=== PATIENT | male | born 1985 | race Caucasian/White ===

== ENCOUNTER 2018-03-13 17:25 | Emergency (ER) | payer MEDICAID, MEDICARE ==
[~2018-03-13] VITALS: Ht 167.6 cm; Wt 62.0 kg
[2018-03-13] MEDS ORDERED: ONDANSETRON 4MG ODT PO ONE (18:45)
[2018-03-13] MEDS ORDERED: KETOROLAC 60MG/2ML VIAL IM ONE (18:45)
[2018-03-13] MEDS ORDERED: MORPHINE SULFATE 10 MG/ML CPJ IM ONE (18:45)
[2018-03-13 18:53] VITALS: BP 114/72
== END 2018-03-13 20:26 | disposition home or self-care (01) ==
LOC: ER 20:02
DX: S82.842A Displaced bimalleolar fracture of left lower leg, initial encounter for closed fracture (principal); V03.10XA Pedestrian on foot injured in collision with car, pick-up truck or van in traffic accident, initial encounter; Y93.89 Activity, other specified; Y92.410 Unspecified street and highway as the place of occurrence of the external cause; F12.90 Cannabis use, unspecified, uncomplicated; Z87.828 Personal history of other (healed) physical injury and trauma; R03.0 Elevated blood-pressure reading, without diagnosis of hypertension
CPT/HCPCS: 29515; 73610; 96372; 99284; J1885; J2270; Q0162

== ENCOUNTER 2018-07-01 13:44 | Emergency (ER) | payer MEDICARE ==
[~2018-07-01] VITALS: Ht 157.5 cm; Wt 59.0 kg
[2018-07-01 14:09] VITALS: BP 112/76
== END 2018-07-01 23:38 | disposition left against medical advice (07) ==
LOC: ER 13:44
DX: F10.129 Alcohol abuse with intoxication, unspecified (principal); Z53.21 Procedure and treatment not carried out due to patient leaving prior to being seen by health care provider